=== PATIENT | male | born 1980 | race Caucasian/White ===

== ENCOUNTER 2021-02-12 07:34 | Outpatient (CLI) | payer BC, SELFPAY ==
[2021-02-12 07:52] LABS: Basophils Absolute Auto 0.08 K/mm3 (0.00-0.10); Basophils Percent Auto 0.8 % (0.0-1.0); Eosinophils Absolute Auto 0.32 K/mm3 (0.02-0.50); Eosinophils Percent Auto 3.1 % (1.0-6.0); Hematocrit 48.9 % (40.0-54.0); Hemoglobin 16.8 g/dL (14.0-18.0); Immature Granulocyte Absolute 0.03 K/mm3 (0.00-0.00); Immature Granulocyte Percent A 0.3 % (0.0-0.0); Lymphocytes Percent Auto 27.8 % (18.0-42.0); Mean Corpuscular HGB Conc 34.4 g/dL (32.0-36.0); Mean Corpuscular Hemoglobin 32.1 pg (27.0-31.0); Mean Corpuscular Volume 93.5 fL (78.0-102.0); Mean Platelet Volume 9.2 fl (8.7-11.0); Monocytes Percent Auto 6.7 % (2.0-11.0); Neutrophils Absolute Auto 6.4 K/mm3 (1.7-7.2); Neutrophils Percent Auto 61.3 % (50.0-70.0); Platelet Count Result 253 K/mm3 (150-420); Red Blood Count 5.23 M/mm3 (4.70-6.10); Red Cell Distribution Width 11.8 % (11.6-14.4); White Blood Count 10.4 K/mm3 (4.8-10.8)
[2021-02-12 08:06] LABS: Hemoglobin A1C 8.3 % (<5.7)
[2021-02-12 08:08] LABS: Creatinine Urine 209.18 mg/dL (40-278)
[2021-02-12 08:20] LABS: MALB Creatinine Ratio 49.7 mg/g (0-30)
[2021-02-12 09:09] LABS: Alanine Aminotransferase 29 U/L (16-63); Albumin Level 4.1 g/dL (3.4-5.0); Alkaline Phosphatase 87 U/L (46-116); Anion Gap 10 mmol/L (8-16); Aspartate Amino Transferase 13 U/L (15-37); Bilirubin,Total 0.7 mg/dL (0.00-1.00); Blood Urea Nitrogen 13 mg/dL (7-18); Calcium 9.3 mg/dL (8.5-10.1); Carbon Dioxide 28 mmol/L (21-32); Chloride 101 mmol/L (98-108); Cholesterol 172 mg/dL (0-200); Estimated Glomerular Filt Rate > 60; Glucose 218 mg/dL (70-99); HDL Direct 28 mg/dL (40-60); Osmolality Calculated 295 mOsm/kg (285-295); Potassium 4.7 mmol/L (3.5-5.1); Sodium 139 mmol/L (136-145); Total Protein 7.4 g/dL (6.4-8.2)
[2021-02-12 09:20] LABS: LDL Cholesterol Calculated 45 mg/dL (<130); Triglycerides 495 mg/dL (0-150)
[2021-02-12 09:21] LABS: LDL Cholesterol Direct 72 mg/dL (0-130)
== END 2021-02-12 07:35 | disposition home or self-care (01) ==
LOC: CHSLAB 07:37
PROVIDERS: PCP Family Medicine; Visit Provider Nurse Practitioner
DX: E11.69 Type 2 diabetes mellitus with other specified complication (principal); E78.1 Pure hyperglyceridemia
CPT/HCPCS: 36415; 80053; 80061; 82043; 83036; 83721; 85025